=== PATIENT | female | born 1965 | race African-American/Black ===

== ENCOUNTER 2017-08-19 22:47 | Emergency (ER) | payer SELFPAY ==
[~2017-08-19] VITALS: Ht 170.2 cm; Wt 90.5 kg
[2017-08-19 22:51] VITALS: BP 184/96; PULSE 94; RESP 18; TEMP 98.8; O2SAT 99
[2017-08-20 00:16] LABS: BACTERIA, URINE RARE /hpf; BILIRUBIN, URINE NEG (NEG); BLOOD, URINE NEG (NEG); GLUCOSE,URINE NEG (NEG); KETONE, URINE NEG (NEG); MUCUS URINE FEW /lpf (OCC); NITRITE,URINE NEG (NEG); PH, URINE 6.5 (5.0-8.5); SQUAMOUS EPITHELIAL CELL URINE 1 /hpf (0-5); URINE COLOR YELLOW (YELLW/STRAW); URINE LEUKOCYTE ESTERASE MOD (NEG)
[2017-08-20] MEDS ORDERED: CIPR250T52 PO (00:20)
[2017-08-20] MEDS ORDERED: METR-1 PO (00:20)
--- NOTE | 2017-08-20 00:21 | PD ---
HPI Chief Complaint: Medical Clearance Time Seen by Provider: 23:04 Travel History International Travel<30 days: No Contact w/Intl Traveler<30days: No Traveled to known affect area: No History of Present Illness HPI The patient is 52 years old. She complains of painful and itchy red lesions on her legs. Duration 3 days. Hydrocortisone cream has not helped. Previously she had a lesion on her abdomen and one her elbow, years ago, and they resolved after a few days. No fever. The patient also reports a foul-smelling vaginal discharge. No fever chills nausea or vomiting. PFSH Past Medical History Medical History: Denies Significant Hx Tetanus Vaccination: < 5 Years ?: Not Past Surgical History Hysterectomy: Yes Social History Alcohol Use: No Tobacco Use: No Substance Use: No Allergies-Medications (Allergen,Severity, Reaction): Coded Allergies: No Known Drug Allergies (Verified Allergy, Unknown, 08/19/17) Review of Systems Except as stated in HPI: all other systems reviewed are Neg General / Constitutional: No: Chills Eyes: No: Blurred Vision HENT: No: Vertigo Physical Exam Narrative GENERAL: 52-year-old female pleasant well-nourished well-developed no acute distress Vital Signs Date Time Temp Pulse Resp B/P (MAP) Pulse Ox O2 Delivery O2 Flow Rate FiO2 08/19/17 22:51 98.8 94 18 184/96 (125) 99 SKIN: Warm and dry. Approximate 2 cm round elevated erythematous indurated lesions present on the legs. There is about 3 on the right leg about 2 in the left leg. There is no generalized swelling of either lower extremity to suggest DVT. HEAD: Atraumatic. Normocephalic. EYES: Pupils equal and round. No scleral icterus. No injection or drainage. ENT: No nasal bleeding or discharge. Mucous membranes pink and moist. NECK: Trachea midline. No JVD. CARDIOVASCULAR: Regular rate and rhythm. RESPIRATORY: No accessory muscle use. Clear to auscultation. Breath sounds equal bilaterally. GASTROINTESTINAL: Abdomen soft, non-tender, nondistended. Hepatic and splenic margins not palpable. MUSCULOSKELETAL: Extremities without clubbing, cyanosis, or edema. No obvious deformities. NEUROLOGICAL: Awake and alert. No obvious cranial nerve deficits. Motor grossly within normal limits. Five out of 5 muscle strength in the arms and legs. Normal speech. PSYCHIATRIC: Appropriate mood and affect; insight and judgment normal. Data Data Last Documented VS Vital Signs Date Time Temp Pulse Resp B/P (MAP) Pulse Ox O2 Delivery O2 Flow Rate FiO2 08/19/17 22:51 98.8 94 18 184/96 (125) 99 Orders Orders Urinalysis - C+S If Indicated (08/19/17 23:31) Labs Laboratory Tests Test 08/19/17 23:45 [facility] Medical Decision Making Medical Screen Exam Complete: Yes Emergency Medical Condition: Yes Medical Record Reviewed: Yes Differential Diagnosis Erythema nodosum, cellulitis, insect bite, bacterial vaginosis Narrative Course Presentation is considered most in keeping with nonspecific dermatitis although erythema nodosum is not entirely excluded. Will provide a short course of steroids. Follow-up with [facility]. Patient has a leukocyte esterase and WBCs. Bacterial vaginosis is considered as is a UTI. Scripts as below. Patient was quite reassured to hear that the presentation is much less in keeping with AIDS and cancer. Diagnosis Primary Impression: Rash Additional Impression: UTI (urinary tract infection) Qualified Codes: N30.00 - Acute cystitis without hematuria Referrals: [facility] call for appointment Med/Other Pt SpecificInfo: Prescription(s) given Scripts Ciprofloxacin (Cipro) 250 Mg Tab 250 MG PO BID for Infection for 3 Days, #6 TAB 0 Refills Prov: Amadou Lopez MD 08/20/17 Metronidazole (Flagyl) 500 Mg Tab 500 MG PO BID for Infection for 7 Days, #14 TAB 0 Refills Prov: Amadou Lopez MD 08/20/17 Disposition: DISCHARGE HOME Condition: Stable Amadou Lopez MD August 20, 2017 00:21
[2017-08-20] MEDS ORDERED: CIPROFLOXACIN 500 MG TAB PO ONE (00:30)
[2017-08-20] MEDS ORDERED: DEXAMETHASONE SOD PHOS 20 MG/5 ML VIAL IM ONE (00:30)
[2017-08-20] MEDS ORDERED: metroNIDAZOLE 500 MG TAB PO ONE (00:30)
== END 2017-08-20 01:00 | disposition home or self-care (01) ==
LOC: NEPD 22:47
DX: R21 Rash and other nonspecific skin eruption (principal); N30.00 Acute cystitis without hematuria
CPT/HCPCS: 81001; 87086; 99283